=== PATIENT | female | born 1980 | race Caucasian/White ===

== ENCOUNTER 2019-07-14 12:22 | Emergency (ER) | payer OTHER ==
[~2019-07-14] VITALS: Ht 154.9 cm; Wt 53.5 kg
[2019-07-14] MEDS ORDERED: IV NORMAL SALINE 1,000ML 1,000 ML IV ONE (12:45)
[2019-07-14 13:05] VITALS: BP 106/68
[2019-07-14 13:11] LABS: BASO # 0.1 x10^3/uL (0.0-0.2); BASO % 1 % (0-3); EOS # 0.1 x10^3/uL (0.0-0.7); EOS % 1 % (0-3); HEMATOCRIT 41.6 % (36.0-47.0); HEMOGLOBIN 14.5 g/dL (12.0-15.5); LYMPH # 2.5 x10^3/uL (1.0-4.8); LYMPH % 27 % (24-48); MEAN CORPUSCULAR HEMOGLOBIN 31 pg (25-35); MEAN CORPUSCULAR HGB CONC 35 g/dL (31-37); MEAN CORPUSCULAR VOLUME 89 fL (79-100); MONO # 0.5 x10^3/uL (0.0-1.1); MONO % 5 % (0-9); NEUT % 66 % (31-73); PLATELET COUNT 393 x10^3/uL (140-400); RED BLOOD COUNT 4.67 x10^6/uL (3.50-5.40); RED CELL DISTRIBUTION WIDTH 13.9 % (11.5-14.5); WHITE BLOOD COUNT 9.2 x10^3/uL (4.0-11.0)
--- NOTE | 2019-07-14 13:11 | RAD ---
EXAM: Abdomen and pelvis CT without intravenous contrast. HISTORY: Left lower quadrant pain. TECHNIQUE: Computed tomographic images of the abdomen and pelvis were obtained without contrast. Multiplanar reformatting was performed. *One or more of the following individualized dose reduction techniques were utilized for this examination: 1. Automated exposure control. 2. Adjustment of the mA and/or kV according to patient size. 3. Use of iterative reconstruction technique. COMPARISON: None. FINDINGS: Evaluation of the lower thorax demonstrates no infiltrate or pleural effusion. The heart is normal in size. No hepatic lesion is seen on this noncontrast exam. The gallbladder, pancreas, spleen and adrenal glands are unremarkable. There is mild left hydronephrosis and hydroureter extending to a 2 mm stone within the distal ureter, at or near the ureterovesical junction. There is a a punctate sub-1 mm density within the upper pole of the left kidney, likely artifact rather than due to a nonobstructing stone. No solid or cystic renal lesion is seen. There is suspected cortical scarring within the lower pole the left kidney. There is no appendicitis. There is no bowel obstruction. There is no evidence of enteritis or colitis. The bladder is nearly empty. The uterus is surgically absent. There is no lymphadenopathy. There is no suspicious osseous lesion. IMPRESSION: Mild left hydronephrosis and hydroureter secondary to a 2 mm stone at or near the ureterovesical junction. There is suspected inferior left renal cortical scarring. Electronically signed by: Haylie Oliver MD (07/14/2019 1:08 PM) [id number]
--- NOTE | 2019-07-14 13:21 | PHYS DOC ---
Past History Past Medical History: No Pertinent History Past Surgical History: Hysterectomy, Tonsillectomy Additional Smoking Information: 1/2-1 PACK/DAY Alcohol Use: Occasionally Drug Use: None Adult General Chief Complaint Chief Complaint: ABDOMINAL PAIN [facility] HPI 39-year-old female presents with left lower quadrant abdominal pain. The patient woke up this morning and was feeling fine. Around 9:30 she had sudden onset of severe pain in her left lower quadrant. She has not had pain like this before. The pain was 9 out of 10. It has waxed and waned throughout the morning. She tried 800 of ibuprofen but the pain is still there. She is tolerating it well at this time. She states it is a 3 out of 10. She has never had a kidney stone or ovarian cysts. She did have endometriosis and had a total hysterectomy. She also had interstitial cystitis that is successfully treated for several years. Just before coming to the emergency room she started to feel like she had to urinate all the time. Her urine is now dark in color. She has had urinary tract infections in the past, but they never had abdominal pain. She denies fever or chills. Review of Systems Review of Systems Constitutional: Denies fever or chills [] Eyes: Denies change in visual acuity, redness, or eye pain [] HENT: Denies nasal congestion or sore throat [] Respiratory: Denies cough or shortness of breath [] Cardiovascular: No additional information not addressed in HPI [] GI: Left lower quadrant abdominal pain. Denies nausea, vomiting, bloody stools or diarrhea [] : Dark urine, increased urgency[] Musculoskeletal: Denies back pain or joint pain [] Integument: Denies rash or skin lesions [] Neurologic: Denies headache, focal weakness or sensory changes [] Endocrine: Denies polyuria or polydipsia [] All other systems were reviewed and found to be within normal limits, except as documented in this note. Current Medications Current Medications Current Medications Medications (Trade) Dose Ordered Sig/Mackenzie Start Time Stop Time Status Last Admin Dose Admin Sodium Chloride 1,000 ml @ 1,000 mls/hr 1X ONCE 07/14/19 12:45 07/14/19 13:44 07/14/19 13:05 1,000 MLS/HR Allergies Allergies Allergies Coded Allergies Type Severity Reaction Last Updated Verified Sulfa (Sulfonamide Antibiotics) Allergy Unknown 07/14/19 Yes Physical Exam Physical Exam Constitutional: Well developed, well nourished, no acute distress, non-toxic appearance. [] HENT: Normocephalic, atraumatic, bilateral external ears normal, oropharynx moist, no oral exudates, nose normal. [] Eyes: PERRLA, EOMI, conjunctiva normal, no discharge. [] Neck: Normal range of motion, no tenderness, supple, no stridor. [] Cardiovascular:Heart rate regular rhythm, no murmur [] Lungs & Thorax: Bilateral breath sounds clear to auscultation [] Abdomen: Bowel sounds normal, soft, no tenderness, no masses, no pulsatile masses. [] Skin: Warm, dry, no erythema, no rash. [] Back: No tenderness, no CVA tenderness. [] Extremities: No tenderness, no cyanosis, no clubbing, ROM intact, no edema. [] Neurologic: Alert and oriented X 3, normal motor function, normal sensory function, no focal deficits noted. [] Psychologic: Affect normal, judgement normal, mood normal. [] Current Patient Data Vital Signs Vital Signs Date Time Temp Pulse Resp B/P (MAP) Pulse Ox O2 Delivery O2 Flow Rate FiO2 07/14/19 12:30 98.4 91 20 99 Room Air Lab Results Laboratory Tests Test 07/14/19 12:51 White Blood Count 9.2 x10^3/uL (4.0-11.0) Red Blood Count 4.67 x10^6/uL (3.50-5.40) Hemoglobin 14.5 g/dL (12.0-15.5) Hematocrit 41.6 % (36.0-47.0) Mean Corpuscular Volume 89 fL (79-100) Mean Corpuscular Hemoglobin 31 pg (25-35) Mean Corpuscular Hemoglobin Concent 35 g/dL (31-37) Red Cell Distribution Width 13.9 % (11.5-14.5) Platelet Count 393 x10^3/uL (140-400) Neutrophils (%) (Auto) 66 % (31-73) Lymphocytes (%) (Auto) 27 % (24-48) Monocytes (%) (Auto) 5 % (0-9) Eosinophils (%) (Auto) 1 % (0-3) Basophils (%) (Auto) 1 % (0-3) Neutrophils # (Auto) 6.0 x10^3uL (1.8-7.7) Lymphocytes # (Auto) 2.5 x10^3/uL (1.0-4.8) Monocytes # (Auto) 0.5 x10^3/uL (0.0-1.1) Eosinophils # (Auto) 0.1 x10^3/uL (0.0-0.7) Basophils # (Auto) 0.1 x10^3/uL (0.0-0.2) EKG EKG [] Radiology/Procedures Radiology/Procedures [] Impressions: EXAM: Abdomen and pelvis CT without intravenous contrast. HISTORY: Left lower quadrant pain. TECHNIQUE: Computed tomographic images of the abdomen and pelvis were obtained without contrast. Multiplanar reformatting was performed. *One or more of the following individualized dose reduction techniques were utilized for this examination: 1. Automated exposure control. 2. Adjustment of the mA and/or kV according to patient size. 3. Use of iterative reconstruction technique. COMPARISON: None. FINDINGS: Evaluation of the lower thorax demonstrates no infiltrate or pleural effusion. The heart is normal in size. No hepatic lesion is seen on this noncontrast exam. The gallbladder, pancreas, spleen and adrenal glands are unremarkable. There is mild left hydronephrosis and hydroureter extending to a 2 mm stone within the distal ureter, at or near the ureterovesical junction. There is a a punctate sub-1 mm density within the upper pole of the left kidney, likely artifact rather than due to a nonobstructing stone. No solid or cystic renal lesion is seen. There is suspected cortical scarring within the lower pole the left kidney. There is no appendicitis. There is no bowel obstruction. There is no evidence of enteritis or colitis. The bladder is nearly empty. The uterus is surgically absent. There is no lymphadenopathy. There is no suspicious osseous lesion. IMPRESSION: Mild left hydronephrosis and hydroureter secondary to a 2 mm stone at or near the ureterovesical junction. There is suspected inferior left renal cortical scarring. Electronically signed by: Haylie Oliver MD (07/14/2019 1:08 PM) [place] [id number] DICTATED AND SIGNED BY: HAYLIE OLIVER MD DATE: 07/14/19 2402 CC: HA,FLORENTIN DO; PCP,UNKNOWN ~ Course & Med Decision Making Course & Med Decision Making Pertinent Labs and Imaging studies reviewed. (See chart for details) The patient's labs are unremarkable. Her urinalysis is significant for blood but no infection. Her CT scan does show a kidney stone at the junction to the bladder. It is only 2 mm and is likely to pass. I advised the patient to drink plenty of fluids. She is stable for discharge at this time. [] Dragon Disclaimer Dragon Disclaimer This electronic medical record was generated, in whole or in part, using a voice recognition dictation system. Departure Departure: Impression: Primary Impression: Kidney stone on left side Disposition: HOME, SELF-CARE Condition: STABLE Referrals: PCP,UNKNOWN (PCP) Patient Instructions: Kidney Stones, [id number] FLORENTIN HA DO Jul 14, 2019 13:21
[2019-07-14 13:26] LABS: CALCIUM 8.8 mg/dL (8.5-10.1); CREATININE 0.8 mg/dL (0.6-1.0); GFR 80.3; POTASSIUM 4.1 mmol/L (3.5-5.1)
[2019-07-14 13:32] LABS: ALBUMIN 3.8 g/dL (3.4-5.0); TOTAL BILIRUBIN 0.3 mg/dL (0.2-1.0); TOTAL PROTEIN 7.5 g/dL (6.4-8.2)
[2019-07-14 13:33] LABS: BILIRUBIN,URINE NEG (NEG); CLARITY,URINE HAZY; COLOR,URINE BROWN; GLUCOSE,URINE NEG (NEG); NITRITE,URINE NEG (NEG); RBC,URINE >40 /HPF (0-2); UROBILINOGEN,URINE 0.2 mg/dL (0.2 mg/dL)
[2019-07-14 13:34] LABS: BACTERIA,URINE FEW /HPF (0-FEW); SQUAMOUS EPITHELIAL CELL,UR FEW /LPF; WBC,URINE 0 /HPF (0-4)
== END 2019-07-14 13:53 | disposition home or self-care (01) ==
LOC: ER 12:22
DX: N20.0 Calculus of kidney (principal); F17.200 Nicotine dependence, unspecified, uncomplicated; Z90.710 Acquired absence of both cervix and uterus; Z88.2 Allergy status to sulfonamides
CPT/HCPCS: 36415; 74176; 80053; 81001; 85025; 99285-25; J7030

== ENCOUNTER 2019-11-06 16:16 | Emergency (ER) | payer OTHER ==
[~2019-11-06] VITALS: Ht 157.5 cm; Wt 54.8 kg
[2019-11-06 16:32] VITALS: BP 130/80
[2019-11-06 17:14] LABS: BILIRUBIN,URINE NEG (NEG); CLARITY,URINE CLEAR; COLOR,URINE STRAW; GLUCOSE,URINE NEG (NEG); NITRITE,URINE NEG (NEG); UROBILINOGEN,URINE 0.2 mg/dL (0.2 mg/dL)
[2019-11-06 17:18] LABS: BACTERIA,URINE 0 /HPF (0-FEW); WBC,URINE 0 /HPF (0-4)
[2019-11-06 17:19] LABS: SQUAMOUS EPITHELIAL CELL,UR MOD /LPF
--- NOTE | 2019-11-06 17:28 | PHYS DOC ---
Past History Past Medical History: Kidney Stones Additional Past Medical Histor: interstitial cystitis (FLORENTIN HA DO) Past Surgical History: Hysterectomy (FLORENTIN HA DO) Past Surgical History: Hysterectomy, Other (AALIYAH BATES MD) Alcohol Use: Occasionally Drug Use: None (FLORETNIN HA DO) General Adult EDM: Chief Complaint: BACK PAIN - NO INJURY HPI: HPI: 39-year-old female presents with left lower quadrant abdominal pain and left flank pain. She has had intermittent pain for about 1 week. The pain comes in waves. It is been more persistent yesterday and today. The patient states that the pain is similar to when she had kidney stones 2 months ago. She has been straining her urine and had a couple of stones passed. She continues to have discomfort. She has increased urinary frequency. She decided she finally needed to get checked out. She had a low-grade fever of 99.7 at home. She took ibuprofen. She denies constipation or diarrhea. She has no other symptoms other than the urinary frequency and pain. (FLORENTIN HA DO) Review of Systems: Review of Systems: Constitutional: Denies fever or chills Eyes: Denies change in visual acuity HENT: Denies nasal congestion or sore throat Respiratory: Denies cough or shortness of breath Cardiovascular: Denies chest pain or edema GI: Left lower quadrant abdominal pain. Denies nausea, vomiting, bloody stools or diarrhea : Urinary frequency Musculoskeletal: Denies back pain or joint pain Integument: Denies rash Neurologic: Denies headache, focal weakness or sensory changes Endocrine: Denies polyuria or polydipsia Lymphatic: Denies swollen glands Psychiatric: Denies depression or anxiety (FLORENTIN HA DO) Heart Score: Risk Factors: Risk Factors: DM, Current or recent (<one month) smoker, HTN, HLP, family history of CAD, obesity. Risk Scores: Score 0 - 3: 2.5% MACE over next 6 weeks - Discharge Home Score 4 - 6: 20.3% MACE over next 6 weeks - Admit for Clinical Observation Score 7 - 10: 72.7% MACE over next 6 weeks - Early Invasive Strategies (FLORENTIN HA DO) Allergies: Allergies: Allergies Coded Allergies Type Severity Reaction Last Updated Verified Sulfa (Sulfonamide Antibiotics) Allergy Unknown 07/14/19 Yes (FLORENTIN HA DO) Physical Exam: PE: Constitutional: Well developed, well nourished, no acute distress, non-toxic appearance. [] HENT: Normocephalic, atraumatic, bilateral external ears normal, oropharynx moist, no oral exudates, nose normal. [] Eyes: PERRLA, EOMI, conjunctiva normal, no discharge. [] Neck: Normal range of motion, no tenderness, supple, no stridor. [] Cardiovascular: Heart rate regular rhythm, no murmur [] Lungs & Thorax: Bilateral breath sounds clear to auscultation [] Abdomen: Bowel sounds normal, soft, mild left lower quadrant tenderness, no masses, no pulsatile masses. [] Skin: Warm, dry, no erythema, no rash. [] Back: No tenderness, no CVA tenderness. [] Extremities: No tenderness, no cyanosis, no clubbing, ROM intact, no edema. [] Neurologic: Alert and oriented X 3, normal motor function, normal sensory function, no focal deficits noted. [] Psychologic: Affect normal, judgement normal, mood normal. [] (FLORENTIN HA DO) Current Patient Data: Labs: Laboratory Tests Test 11/06/19 16:20 Urine Collection Type Unknown Urine Color Straw Urine Clarity Clear Urine pH 6.0 Urine Specific [place] <=1.005 Urine Protein Neg (NEG-TRACE) Urine Glucose (UA) Neg mg/dL (NEG) Urine Ketones (Stick) Neg mg/dL (NEG) Urine Blood Mod (NEG) Urine Nitrite Neg (NEG) Urine Bilirubin Neg (NEG) Urine Urobilinogen Dipstick 0.2 mg/dL (0.2 mg/dL) Urine Leukocyte Esterase Neg (NEG) Urine RBC 1-2 /HPF (0-2) Urine WBC 0 /HPF (0-4) Urine Squamous Epithelial Cells Mod /LPF Urine Bacteria 0 /HPF (0-FEW) Vital Signs: Vital Signs Date Time Temp Pulse Resp B/P (MAP) Pulse Ox O2 Delivery O2 Flow Rate FiO2 11/06/19 16:32 98.2 101 16 130/80 (97) 100 Room Air (FLORENTIN HA DO) EKG: EKG: [] (FLORENTIN HA DO) Radiology/Procedures: Radiology/Procedures: [] (FLORENTIN HA DO) Radiology/Procedures: [address] [id number] IMAGING REPORT Signed PATIENT: ALEXA ADAME AACCOUNT: [id number] : 1980 LOCATION: ER AGE: 39 SEX: F EXAM STATUS: REG ER ORD. PHYSICIAN: FLORENTIN HA DO REASON: LLQ abdominal pain PROCEDURE: CT ABD PELV W/ IV CONTRST ONLY EXAM: CT Abdomen and Pelvis with IV contrast CLINICAL HISTORY: Left lower quadrant abdominal pain. COMPARISON: none TECHNIQUE: Helical CT of the abdomen and pelvis was performed following the administration of IV contrast. Axial, coronal and sagittal reformatted images were generated. ---PQRS compliance statement - One or more of the following individualized dose reduction techniques were utilized for this study: 1. Automated exposure control 2. Adjustment of the mA and/or kV according to patient size 3. Use of iterative reconstruction technique--- FINDINGS: Lower chest: Lung bases are clear Abdomen and pelvis: Liver and biliary system: No focal liver lesion. Gallbladder is normal. No biliary ductal dilatation. Spleen: Unremarkable Pancreas: Unremarkable Adrenal glands: Unremarkable Kidneys: Symmetric nephrograms. Subcentimeter hypodense right lower pole renal lesion is too small to accurately characterize. No hydronephrosis. No hydroureter. Lymph nodes/retroperitoneum: No abdominal or pelvic lymphadenopathy. Vessels: Aorta is normal in caliber. Bowel/Peritoneal cavity: Appendix is normal. Mild colonic stool content. Decompressed appearance of the transverse colon and descending colon. No small or large bowel dilatation. No bowel obstruction. No abdominal or pelvic ascites. No abdominal or pelvic lymphadenopathy. There has been a hysterectomy. Gas and debris is seen within the vaginal vault. Abdominal wall: Trace fat-containing periumbilical hernia is seen. Bladder: Unremarkable Bones: No aggressive osseous lesion is seen. IMPRESSION: 1. No evidence of bowel obstruction. The colon is mostly decompressed. 2. The previously seen calculus at the left ureterovesicular junction is no longer seen. No hydronephrosis or hydroureter. 3. Appendix is normal. 4. There has been a hysterectomy. 5. Small fat-containing periumbilical hernia. Electronically signed by: Jose G Sandra MD (11/06/2019 6:30 PM) [facility] (AALIYAH BATES MD) Course & Med Decision Making: Course & Med Decision Making Pertinent Labs and Imaging studies reviewed. (See chart for details) The patient's urinalysis is negative for blood or infection. I have ordered additional blood work and CT of the abdomen and pelvis. These are pending. I am signing the patient out to Dr. Bates at 1800. [] (FLORENTIN HA DO) Course & Med Decision Making See Dr. Ha report at shift change for details. Re-exam at sift change. Pain Mid abdomen and Lt Flank area. Distended. No focal rebound. Old surgery scars. No psoas sign. Impression: 1. Abdomen Pain and Lt Flank 2. Normal WBC and Electrolytes 3. Constipation 4. History of endometriosis 9 5. History of laparoscopic evaluations and hysterectomy-still has ovaries 6. History of IBS 7. Small umbilicus hernia-contains only fat Recommend patient remain on a clear fluid diet only for the next 2 days. No solids no milk products clear fluids only allow bowel rest. Follow-up primary care. If still having pain will need reexam and possible contrast oral CT. Recommend patient have a colonoscopy. Patient return if any concerns. Take Tylenol and ibuprofen for discomfort. (AALIYAH BATES MD) Dragon Disclaimer: Dragon Disclaimer: This electronic medical record was generated, in whole or in part, using a voice recognition dictation system. (FLORENTIN HA DO) Departure Departure: Impression: Primary Impression: Left lower quadrant abdominal pain Disposition: HOME/RESIDENCE PRIOR TO ADM Condition: STABLE Referrals: ANNMARIE CRAFT DO, M[facility] (PCP) Dragon Disclaimer This chart was dictated in whole or in part using Voice Recognition software in a busy, high-work load, and often noisy Emergency Department environment. It may contain unintended and wholly unrecognized errors or omissions. (AALIYAH BATES MD) FLORENTIN HA DO November 06, 2019 17:27 AALIYAH BATES MD November 06, 2019 19:14
[2019-11-06] MEDS ORDERED: IOHEXOL 300 MG/ML 75 ML VIAL. IV ONE (18:00)
[2019-11-06 18:03] LABS: CALCIUM 9.1 mg/dL (8.5-10.1); CREATININE 0.7 mg/dL (0.6-1.0); GFR 93.6; POTASSIUM 3.7 mmol/L (3.5-5.1)
[2019-11-06 18:06] LABS: BASO # 0.1 x10^3/uL (0.0-0.2); BASO % 1 % (0-3); EOS # 0.1 x10^3/uL (0.0-0.7); EOS % 1 % (0-3); HEMATOCRIT 43.4 % (36.0-47.0); HEMOGLOBIN 14.5 g/dL (12.0-15.5); LYMPH # 3.2 x10^3/uL (1.0-4.8); LYMPH % 29 % (24-48); MEAN CORPUSCULAR HEMOGLOBIN 31 pg (25-35); MEAN CORPUSCULAR HGB CONC 33 g/dL (31-37); MEAN CORPUSCULAR VOLUME 94 fL (79-100); MONO # 0.6 x10^3/uL (0.0-1.1); MONO % 5 % (0-9); NEUT % 64 % (31-73); PLATELET COUNT 420 x10^3/uL (140-400); RED BLOOD COUNT 4.64 x10^6/uL (3.50-5.40); RED CELL DISTRIBUTION WIDTH 13.9 % (11.5-14.5); WHITE BLOOD COUNT 10.9 x10^3/uL (4.0-11.0)
[2019-11-06 18:09] LABS: ALBUMIN/GLOBULIN RATIO 1.1 (1.0-1.7); TOTAL BILIRUBIN 0.4 mg/dL (0.2-1.0); TOTAL PROTEIN 7.6 g/dL (6.4-8.2)
--- NOTE | 2019-11-06 18:33 | RAD ---
EXAM: CT Abdomen and Pelvis with IV contrast CLINICAL HISTORY: Left lower quadrant abdominal pain. COMPARISON: none TECHNIQUE: Helical CT of the abdomen and pelvis was performed following the administration of IV contrast. Axial, coronal and sagittal reformatted images were generated. ---PQRS compliance statement - One or more of the following individualized dose reduction techniques were utilized for this study: 1. Automated exposure control 2. Adjustment of the mA and/or kV according to patient size 3. Use of iterative reconstruction technique--- FINDINGS: Lower chest: Lung bases are clear Abdomen and pelvis: Liver and biliary system: No focal liver lesion. Gallbladder is normal. No biliary ductal dilatation. Spleen: Unremarkable Pancreas: Unremarkable Adrenal glands: Unremarkable Kidneys: Symmetric nephrograms. Subcentimeter hypodense right lower pole renal lesion is too small to accurately characterize. No hydronephrosis. No hydroureter. Lymph nodes/retroperitoneum: No abdominal or pelvic lymphadenopathy. Vessels: Aorta is normal in caliber. Bowel/Peritoneal cavity: Appendix is normal. Mild colonic stool content. Decompressed appearance of the transverse colon and descending colon. No small or large bowel dilatation. No bowel obstruction. No abdominal or pelvic ascites. No abdominal or pelvic lymphadenopathy. There has been a hysterectomy. Gas and debris is seen within the vaginal vault. Abdominal wall: Trace fat-containing periumbilical hernia is seen. Bladder: Unremarkable Bones: No aggressive osseous lesion is seen. IMPRESSION: 1. No evidence of bowel obstruction. The colon is mostly decompressed. 2. The previously seen calculus at the left ureterovesicular junction is no longer seen. No hydronephrosis or hydroureter. 3. Appendix is normal. 4. There has been a hysterectomy. 5. Small fat-containing periumbilical hernia. Electronically signed by: Jose G Sandra MD (11/06/2019 6:30 PM) [facility]
[2019-11-06] MEDS ORDERED: MAGNESIUM HYDROXIDE 2,400 MG/30 ML ORAL.SUSP. PO ONE (19:30)
== END 2019-11-06 19:34 | disposition home or self-care (01) ==
LOC: ER 16:16
DX: K59.00 Constipation, unspecified (principal); K42.9 Umbilical hernia without obstruction or gangrene; K58.9 Irritable bowel syndrome, unspecified; Z87.442 Personal history of urinary calculi; Z90.710 Acquired absence of both cervix and uterus; Z88.2 Allergy status to sulfonamides
CPT/HCPCS: 36415; 74177; 80053; 81001; 85025; 99285; Q9967

== ENCOUNTER → 2019-11-16 | Outpatient (CLI) | payer OTHER ==
[2019-11-06 16:32] VITALS: BP 130/80
[~2019-11-16] MED LIST: IOHEXOL 240 MG/ML 50ML VIAL. ONE; IOHEXOL 300 MG/ML 75 ML VIAL. IV ONE
--- NOTE | 2019-11-16 11:18 | RAD ---
CT ABD PELV W/ORAL IV CONTRAST Indication: Continued lower abdominal pain. Hysterectomy. Exposure: One or more of the following individualized dose reduction techniques were utilized for this examination: 1. Automated exposure control 2. Adjustment of the mA and/or kV according to patient size 3. Use of iterative reconstruction technique. Technique: Intravenous contrast was given. Oral contrast was given. Comparison: 11/06/2019 FINDINGS: There is a very faint small nodule in the right lung base measuring about 3 mm, series 2, image 3. The liver and spleen appear unremarkable. Pancreas unremarkable. No evidence of adrenal mass. Kidneys demonstrate symmetric enhancement without hydronephrosis. Several tiny hypodense renal lesions are identified, too small to characterize. However, these appear similar and most likely represents subcentimeter cysts. No evidence of calcified gallstone. The aorta is nonaneurysmal. No evidence of pathologic lymph node enlargement. Small hiatal hernia. No evidence of stomach abnormality. No significant small bowel distention or evidence to suggest bowel obstruction. [id number] stool in the colon. No evidence of acute colitis. A structure which may represent normal appendix is identified. No inflammatory type changes are identified in the right lower quadrant. No significant pneumoperitoneum no evidence of ascites. Urinary bladder demonstrates no significant wall thickening. Low-density lesion within the right adnexa measuring 2.5 cm diameter and 27 Hounsfield units, would most commonly represent an ovarian cyst. No evidence of acute fracture. No evidence of aggressive bone destruction. IMPRESSION: 1. Very faint pulmonary nodule in the right lung base, not definitely seen previously but this level may not included. Regardless, significance is questionable, and as per revised Fleischner guidelines, follow-up could be considered if there are concerning risk factors. 2. Subcentimeter lesions of the right kidney, similar to previous study and most likely due to cysts. 3. Low-density lesion of the right adnexa, most likely an ovarian cyst. Electronically signed by: Tony Becerra MD (11/16/2019 11:15 AM) [id number]
== END ==
LOC: CT 08:59
DX: R91.1 Solitary pulmonary nodule (principal); K44.9 Diaphragmatic hernia without obstruction or gangrene
CPT/HCPCS: 74177; Q9967